=== PATIENT | female | born 1985 ===

== ENCOUNTER 2019-08-23 12:13 | Outpatient (CLI) | payer SELFPAY ==
[2019-08-23 13:36] VITALS: BP 120/59
== END 2019-08-23 15:30 | disposition home or self-care (01) ==
LOC: TRG 12:13 → APU 12:14 → TRG 15:30
PROVIDERS: ATTEND Obstetrics & Gynecology
DX: O47.00 False labor before 37 completed weeks of gestation, unspecified trimester (principal); Z3A.00 Weeks of gestation of pregnancy not specified
CPT/HCPCS: 59025; 76815; 76817

== ENCOUNTER 2019-11-03 09:05 | Inpatient (IN) | payer OTHER ==
--- NOTE | 2019-11-03 09:35 | History and Physical Report ---
History of Present Illness Date of examination: 11/03/19 Date of admission: 11/03/19 09:05 Chief complaint: For repeat c/s History of present illness: 34 yo at 39w0d by LMP/sono presenting for repeat c/s at term given low lying complaints. Denies labor complaints or PIH symptoms. + FM. Past History Past Medical History: other (thyroid nodule: nl TSH) Past Surgical History: section PHYSICAL DAMAGE APPRAISER History: chlamydia Family/Genetic History: diabetes Social history: no significant social history - Obstetrical History : 2 Para: 1 Number of Pregnancies: 1 Medications and Allergies Allergies Allergy/AdvReac Type Severity Reaction Status Date / Time No Known Allergies Allergy Verified 10/16/19 14:18 Home Medications Medication Instructions Recorded Confirmed Last Taken Type No Known Home Medications [No 10/17/19 10/17/19 Unknown History Reported Home Medications] Review of Systems All systems: negative (expect HPI) - Vital Signs Vital signs: Vital Signs Pulse BP 73 112/60 11/03/19 09:30 11/03/19 09:30 Temp Pulse Resp BP Pulse Ox 73 112/60 11/03/19 09:30 11/03/19 09:30 - Physical Exam Breasts: Positive: deferred Cardiovascular: Regular rate, Normal S1, Normal S2 Lungs: Positive: Clear to auscultation Abdomen: Positive: normal appearance, other (gravid) - Obstetrical FHR: auscultation normal, category 1 Results All other labs normal. Assessment and Plan Low Lying placenta at 38 weeks --For Repeat c/s, questioned solicited and answered. - Patient Problems (1) Low lying placenta nos or without hemorrhage, third trimester Current Visit: Yes Status: Acute Plan to address problem: For repeat c section
[2019-11-03] MEDS ORDERED: OXYTOCIN 20 UNIT/1000ML DRIP 20 UNITS/1,000 ML BAG IV SCH ×2 (10:00→15:00)
[2019-11-03] MEDS ORDERED: ceFAZolin/Water 2 GM/20 ML 2 GM/20 ML SYRINGE IV NR (10:00)
[2019-11-03] MEDS ORDERED: BICITRA ORAL LIQD 30ML PO SCH (10:00)
[2019-11-03] MEDS ORDERED: FAMOTIDINE 20 MG/2 ML INJ IV SCH (10:00)
[2019-11-03] MEDS ORDERED: METOCLOPRAMIDE 10 MG/2 ML INJ IV SCH (10:00)
[2019-11-03] MEDS: LACTATED RINGERS 1,000 ML IV SCH ×3 (10:15→12:19)
[2019-11-03 10:20] LABS: Basophils % (Auto) 0.3 % (0.0-1.8); Eosinophils # (Auto) 0.1 K/mm3 (0.0-0.4); Eosinophils % (Auto) 0.7 % (0.0-4.3); Hematocrit 38.1 % (30.3-42.9); Hemoglobin 12.7 gm/dl (10.1-14.3); Lymphocytes # (Auto) 1.4 K/mm3 (1.2-5.4); Lymphocytes % (Auto) 18.1 % (13.4-35.0); Mean Corpuscular HGB Conc 33 % (30-34); Mean Corpuscular Volume 86 fl (79-97); Monocytes # (Auto) 0.7 K/mm3 (0.0-0.8); Monocytes % (Auto) 8.7 % (0.0-7.3); Platelet Count 248 K/mm3 (140-440); Red Blood Count 4.41 M/mm3 (3.65-5.03); Red Cell Distribution Width 14.6 % (13.2-15.2)
--- NOTE | 2019-11-03 11:51 | Anesthesia Day of Surgery ---
Anesthesia Day of Surgery - Day of Surgery Patient Examined: Yes Patient H&P Reviewed: Yes Patient is NPO: Yes Beta Blockers: No Cardiac Clearance: No Pulmonary Clearance: No Salvatore's Test: N/A
[2019-11-03] MEDS ORDERED: HYDROmorphone 1 MG/1 ML INJ IV PRN (11:52)
[2019-11-03] MEDS ORDERED: NALOXONE 0.4 MG/1 ML INJ IV PRN ×2 (11:52→14:38)
[2019-11-03] MEDS ORDERED: ONDANSETRON 4 MG/2 ML INJ IV PRN (11:52)
--- NOTE | 2019-11-03 11:52 | Anesthesia Consultation ---
Anesthesia Consult and Med Hx Date of service: 11/03/19 - Airway Anesthetic Teeth Evaluation: Good ROM Head & Neck: Adequate Mental/Hyoid Distance: Adequate Mallampati Class: Class II Intubation Access Assessment: Probably Good - Pulmonary Exam CTA: Yes - Cardiac Exam Cardiac Exam: RRR - Pre-Operative Health Status ASA Pre-Surgery Classification: ASA2 Proposed Anesthetic Plan: Spinal - Pulmonary Hx Smoking: No Hx Asthma: No Hx Respiratory Symptoms: No SOB: No COPD: No Home Oxygen Therapy: No Hx Pneumonia: No Hx Sleep Apnea: No - Cardiovascular System Hx Hypertension: No Hx Coronary Artery Disease: No Hx Heart Attack/AMI: No Hx Angina: No Hx Percutaneous Transluminal Coronary Angioplasty (PTCA): No Hx Cardia Arrhythmia: No Hx Pacemaker: No Hx Internal Defibrillator: No Hx Valvular Heart Disease: No Hx Heart Murmur: No Hx Peripheral Vascular Disease: No - Central Nervous System Hx Neuromuscular Disorder: No Hx Seizures: No CVA: No Hx Back Pain: No Hx Psychiatric Problems: No - Gastrointestinal Hx Ulcer: No Hx Gastroesophageal Reflux Disease: No - Endocrine Hx Renal Disease: No Hx End Stage Renal Disease: No Hx Cirrhosis: No Hx Liver Disease: No Hx Insulin Dependent Diabetes: No Hx Non-Insulin Dependent Diabetes: No Hx Thyroid Disease: Yes (thyroid nodule) Hx Hypothyroidism: No Hx Hyperthyroidism: No - Hematic Hx Anemia: No Hx Sickle Cell Disease: No - Other Systems Hx Alcohol Use: No Hx Substance Use: No Hx Cancer: No Hx Obesity: Yes
[2019-11-03] MEDS ORDERED: DEXMEDETOMIDINE 200 MCG/2 ML VIAL IV ONE (12:51)
[2019-11-03] MEDS ORDERED: PHENYLEPHRINE/NS 1,000 MCG/10 ML SYRINGE (OR USE) IV ONE (13:02)
[2019-11-03] MEDS ORDERED: WATER FOR IRRIG STERILE 1,500 ML BOTTLE IR ONE (13:12)
[2019-11-03] MEDS ORDERED: SODIUM CHLORIDE 0.9% IRR 1,500 ML BOTTLE IR ONE (13:12)
[2019-11-03] MEDS ORDERED: ceFAZolin/STERILE WATER 2 GM/20 ML SYRINGE IV ONE (13:12)
--- NOTE | 2019-11-03 14:35 | Procedure Note ---
OB Delivery Note - Delivery Date of Delivery: 11/03/19 Surgeon: KEKE WADDELL JR (a) Estimated blood loss: other (800cc) - Section Postop diagnosis: other (repeat for low lying placenta, breech, moderate adhesions) section procedure: section, repeat low transverse Disposition: PACU Complications: none Narrative: Indication: 34 yo at 38 weeks c/b hx c/s x 1 presenting for scheduled c/s for low lying placenta at term. Findings: Normal uterus, tubes and ovaries. Clear fluid. Nuchal cord x 1. Placenta noted to be a hysterotomy, delivered breech Procedure: Patient was taken to the operating room prepped and draped in the usual sterile fashion. Pfannenstiel skin incision was made and carried down to the underlying fascia. Fascia was incised and the incision was distended bilaterally. Rectus fascia was dissected off the rectus muscle superiorly and inferiorly. Peritoneum was identified and entered. Peritoneal incision extended superiorly and inferiorly. The bladder was visualized. The bladder blade was placed. Inferior and superior adhesions were taken down to better visualize the uterus. Cara retractor was use to improve visualization. Uterine hysterotomy incision was made and extended bilaterally. The baby was delivered in the typical breech fashion. Head not engaged with location of placenta. Foot grasped while in uterus followed by breech delivery, uncomplicated. Baby was bulb suction at delivery. The cord was cut and clamped and handed off to the team. The placenta was delivered spontaneously. The uterus was exteriorized and cleared of all clots and debris. Uterine incision was closed with a 0 Vicryl in a running locked fashion. Good hemostasis was noted. The urine was noted to be clear. Uterus, tubes, and ovaries were returned to the abdominal cavity. Bilateral gutters were cleared and the abdomen and pelvis were irrigated. Good hemostasis noted. Attention was directed towards the rectus fascia which was reapproximated with 0 Vicryl in a running fashion. The subcutaneous tissue was irrigated and reapproximated with 3-0 Vicryl and 4-0 minocryl more superfically in a running fashion. Skin was closed with a 4-0 Vicryl in a subcuticular fashion. The procedure was completed and the patient tolerated the procedure well. All instruments and lap counts were correct x2. EBL 800 cc, UOP 150 cc, IVF 1700 cc 3380g to NBN - A at 1 minute: 8 Gender: Male
[2019-11-03] MEDS ORDERED: SIMETHICONE 80 MG CHEW TAB PO PRN (14:38)
[2019-11-03] MEDS ORDERED: SENNOSIDES 8.6 MG TAB PO PRN (14:38)
[2019-11-03] MEDS ORDERED: LANOLIN/ZINC/DIMETHICONE (LANSINOH) 7 GM TP PRN (14:38)
[2019-11-03] MEDS ORDERED: HYDROCORTISONE 25 MG RECTAL SUPP PR PRN (14:38)
[2019-11-03] MEDS ORDERED: WITCH HAZEL/ GLYCERIN PAD TP PRN (14:38)
[2019-11-03] MEDS ORDERED: MAGNESIUM HYDROXIDE (MOM) ORAL LIQD UDC PO PRN (14:38)
[2019-11-03] MEDS: D5W/LACTATED RINGERS 1,000 ML IV SCH ×2 (17:00→23:53)
[2019-11-03] MEDS: KETOROLAC 30 MG/1 ML INJ IV SCH ×2 (17:39→23:47)
--- NOTE | 2019-11-03 22:13 | Post Anesthesia Evaluation ---
- Post Anesthesia Evaluation Patient Participated: Yes Airway Patent: Yes Stable Respiratory Function: Yes Nausea/Vomiting: No Temp > 96.8F: Yes Pain Manageable: Yes Adequeate Hydration: Yes Anesthesia Complications: No Block Receding Appropriately: Yes Patient on Ventilator: No
[2019-11-04] MEDS: MORPHINE 4 MG/1 ML INJ IV PRN ×2 (02:04→08:55)
[2019-11-04] MEDS: KETOROLAC 30 MG/1 ML INJ IV SCH ×2 (05:51→09:00)
[2019-11-04] MEDS: D5W/LACTATED RINGERS 1,000 ML IV SCH (05:51)
[2019-11-04 06:19] LABS: Hematocrit 31.8 % (30.3-42.9); Hemoglobin 10.7 gm/dl (10.1-14.3)
--- NOTE | 2019-11-04 08:36 | Progress Note ---
Assessment and Plan A: POD #1- stable P: Continue post-op care Ambulate Subjective - Subjective Date of service: 11/04/19 Principal diagnosis: Repeat , POD # 1 Patient reports: appetite normal : doing well Objective - Vital Signs Latest vital signs: Vital Signs Temp Pulse Resp BP BP Pulse Ox 11/04/19 05:51 20 11/04/19 03:50 98.4 F 76 20 101/52 99 11/04/19 02:04 20 11/03/19 23:55 98.6 F 80 18 100/49 97 11/03/19 23:47 20 11/03/19 20:15 98.0 F 76 18 100/56 98 11/03/19 16:00 98.1 F 80 20 113/60 11/03/19 15:30 98.7 F 91 H 15 106/56 98 11/03/19 15:15 81 14 116/57 98 11/03/19 15:00 78 12 116/46 98 11/03/19 14:55 75 19 109/62 98 11/03/19 14:50 72 16 113/61 98 11/03/19 14:44 97.8 F 85 11 L 101/55 94 11/03/19 09:39 98.3 F 16 11/03/19 09:30 73 112/60 Intake and Output 11/03/19 11/04/19 11/04/19 22:59 06:59 14:59 Intake Total 920 2086.250 Output Total 1050 1200 Balance -130 886.250 Intake: IV 800 1606.250 D5lr 1,000 ml @ 125 mls/ 1606.250 hr IV DIRECT JEAN CLAUDE Rx#: [id number] Oral 120 480 Output: Urine 1050 1200 Indwelling Catheter 800 1200 Other: Total, Intake Amount 120 240 Total, Output Amount 800 600 # Voids Indwelling Catheter 200 - Exam Breasts: Present: deferred Cardiovascular: Present: Regular rate Lungs: Present: Clear to auscultation Abdomen: Present: soft Uterus: Present: fundal height below umbilicus Extremities: Present: normal Deep Tendon Reflex Grade: Normal +2 - Labs Labs: Abnormal lab results 11/03/19 Range/Units 09:45 [place] % (Auto) 8.7 H (0.0-7.3) % Seg Neutrophils % 72.2 H (40.0-70.0) %
[2019-11-04] MEDS: oxyCODONE /ACETAMINOPHEN 5-325MG TAB PO PRN ×2 (11:48→17:09)
[2019-11-04] MEDS: IBUPROFEN 800 MG TAB PO PRN ×2 (15:00→20:50)
[2019-11-05] MEDS: oxyCODONE /ACETAMINOPHEN 5-325MG TAB PO PRN ×2 (01:53→22:00)
[2019-11-05] MEDS ORDERED: oxyCODONE /ACETAMINOPHEN 5-325MG TAB PO PRN (08:29)
[2019-11-05] MEDS: IBUPROFEN 800 MG TAB PO PRN ×2 (09:25→15:38)
[2019-11-05] MEDS ORDERED: FERROUS SULFATE 325 MG TAB PO ONE (09:46)
--- NOTE | 2019-11-05 12:02 | Progress Note ---
Assessment and Plan A: /postop day 2 S/P repeat LTCS. Anemia. P: Iron supplement. Continue to ambulate. Anticipate discharge tomorrow morning if patient continues to do well. Subjective - Subjective Date of service: 11/05/19 Principal diagnosis: Repeat , POD # 2 Interval history: /postop day 2 S/P repeat LTCS. Doing well. No complaints. Desires discharge tomorrow morning. Patient reports: appetite normal, voiding normally, pain well controlled, flatus, ambulating normally, no dizzy ambulation, no nauseated [place]: doing well Objective - Vital Signs Latest vital signs: Vital Signs Temp Pulse Resp BP BP Pulse Ox 11/05/19 09:25 20 11/05/19 08:47 20 11/05/19 07:44 98.5 F 76 18 104/67 97 11/04/19 17:00 98.4 F 82 16 102/68 100 Intake and Output 11/04/19 11/05/19 11/05/19 23:59 07:59 15:59 Intake Total 480 480 Output Total 650 Balance -170 480 Intake: Oral 480 240 Intake, Free Water 240 Output: Urine 650 Indwelling Catheter 650 Other: Total, Intake Amount 480 240 Total, Output Amount 650 # Voids Indwelling Catheter 3 1 - Exam Cardiovascular: Present: Regular rate, Normal S1, Normal S2 Lungs: Present: Clear to auscultation Abdomen: Present: normal appearance, soft, normal bowel sounds. Absent: distention, tenderness, guarding, rigidity Uterus: Present: normal, firm, fundal height below umbilicus. Absent: bogginess, tenderness Extremities: Present: normal. Absent: tenderness, edema Incision: Present: normal, dry, intact
[2019-11-06] MEDS: oxyCODONE /ACETAMINOPHEN 5-325MG TAB PO PRN (05:55)
[2019-11-06] MEDS: IBUPROFEN 800 MG TAB PO PRN (08:57)
--- NOTE | 2019-11-06 15:25 | Progress Note ---
Assessment and Plan A: /postop day 3 S/P repeat LTCS. Anemia. P: Discharge patient home today. Discussed with patient /postop discharge instructions and warning signs. Advised patient to avoid intercourse, lifting, and housework. Advised patient to continue taking her vitamin and iron supplements. Advised patient to follow up at [facility] in 1 week. Patient voiced understanding of all instructions. Subjective - Subjective Date of service: 11/06/19 Principal diagnosis: Repeat , POD # 3 Interval history: /postop day 3 S/P repeat LTCS. Doing well. No complaints. Desires discharge. Patient reports: appetite normal, voiding normally, pain well controlled, flatus, ambulating normally, no dizzy ambulation, no nauseated [place]: doing well Objective - Vital Signs Latest vital signs: Vital Signs Temp Pulse Resp BP Pulse Ox 11/06/19 08:57 20 11/06/19 08:12 98.1 F 66 20 104/66 96 11/06/19 06:55 18 11/06/19 05:55 18 11/06/19 00:17 97.9 F 73 20 93/54 97 11/05/19 23:00 18 11/05/19 22:00 18 11/05/19 15:38 20 11/05/19 15:37 97.4 F L 72 24 130/70 95 Intake and Output 11/05/19 11/06/19 11/06/19 23:59 07:59 15:59 Intake Total 240 480 720 Balance 240 480 720 Intake: Oral 240 480 720 Other: Total, Intake Amount 240 240 240 # Voids Void 1 1 1 - Exam Cardiovascular: Present: Regular rate, Normal S1, Normal S2 Lungs: Present: Clear to auscultation Abdomen: Present: normal appearance, soft, normal bowel sounds. Absent: distention, tenderness, guarding, rigidity Uterus: Present: normal, firm, fundal height below umbilicus. Absent: bogginess, tenderness Extremities: Present: normal. Absent: tenderness, edema Incision: Present: normal, dry, intact
--- NOTE | 2019-11-06 15:31 | Discharge Summary ---
Providers - Providers Date of Admission: 11/03/19 09:05 Attending physician: KEKE WADDELL JR, MD Primary care physician: MAYRA LEHMAN Hospitalization Reason for admission: section Delivery: Procedure: repeat low transverse Incision: normal, dry, intact Other procedures: none complications: none Discharge diagnosis: IUP at term delivered [place] baby: male Pertinent studies: Labs Hospital course: Normal hospital course Condition at discharge: Good Disposition: DC-01 TO HOME OR SELFCARE - Discharge Diagnoses (1) Term delivered Status: Acute Plan - Discharge Medications Prescriptions: Ibuprofen [Motrin 800 MG tab] 800 mg PO Q6H PRN #30 tablet PRN Reason: Pain, Mild (1-3) oxyCODONE /ACETAMINOPHEN [Percocet 5/325 mg] 1 tab PO Q6H PRN #30 tablet PRN Reason: Pain, Moderate (4-6) - Provider Discharge Summary Activity: routine, no sex for 6 weeks, no heavy lifting 4 weeks, no strenuous exercise Diet: routine Instructions: routine Additional instructions: Continue taking your vitamins and iron supplements at home. Follow up at [facility] in 1 week. Call your doctor immediately for: * Fever > 100.5 * Heavy vaginal bleeding ( >1 pad per hour) * Severe persistent headache * Shortness of breath * Reddened, hot, painful area to leg or breast * Drainage or odor from incision. * Keep incision clean and dry at all times and follow doctor's instructions regarding bathing/showering - Follow up plan Follow up: KEKE WADDELL JR, MD [Staff Physician] - 7 Days (2 weeks postop)
[2019-11-06 16:49] VITALS: BP 116/70
== END 2019-11-06 17:25 | disposition home or self-care (01) | DRG 787 ==
LOC: APU 09:05 → OB 15:50
PROVIDERS: ADMIT Obstetrics & Gynecology; ATTEND Obstetrics & Gynecology
PROC: 10D00Z1 Extraction of Products of Conception, Low, Open Approach (ICD-10-PCS; principal; 2019-11-03)
DX: O69.81X0 Labor and delivery complicated by cord around neck, without compression, not applicable or unspecified (principal); O44.43 Low lying placenta NOS or without hemorrhage, third trimester; O99.214 Obesity complicating childbirth; O34.211 Maternal care for low transverse scar from previous cesarean delivery; N85.8 Other specified noninflammatory disorders of uterus; Z3A.39 39 weeks gestation of pregnancy; Z37.0 Single live birth; E66.9 Obesity, unspecified; O32.1XX0 Maternal care for breech presentation, not applicable or unspecified; O99.02 Anemia complicating childbirth; D64.9 Anemia, unspecified
CPT/HCPCS: 36415; 85014; 85018; 85025; 86850; 86900; 86901; G0378; J0690; J1885; J2270; J2370; J2405; J2590; J2765; J3490; J7120; J7121